=== PATIENT | male | born 1965 | race Caucasian/White ===

== ENCOUNTER 2018-05-15 16:17 | Emergency (ER) | payer BC, OTHER ==
[2018-05-15 16:30] VITALS: BP 114/77
--- NOTE | 2018-05-15 16:31 | UC ---
Skin Complaint HPI - HPI Summary HPI Summary: 53 yo male presents with rash to b/l arms. He tells me that 2 days ago he was out in the [place] putting up and taking down tree stands. The next day he developed a rash to his b/l arms. Worse today. Itchy and red. Has not applied anything OTC or taken anything po. Denies fever, chills, SOB, chest pain, or difficulty breathing. - History of Current Complaint Chief Complaint: UCRash Stated Complaint: RASH Hx Obtained From: Patient Onset/Duration: Gradual Onset Skin Exposure Onset/Duration: Days Ago Current Severity: None Pain Intensity: 0 - Allergy/Home Medications Allergies/Adverse Reactions: Allergies Allergy/AdvReac Type Severity Reaction Status Date / Time penicillin G Allergy Rash Verified 05/15/18 16:31 Sulfa (Sulfonamide Allergy Rash Verified 05/15/18 16:31 Antibiotics) Review of Systems Constitutional: Negative Skin: Rash Respiratory: Negative Cardiovascular: Negative Gastrointestinal: Negative Neurovascular: Negative Neurological: Negative Psychological: Negative All Other Systems Reviewed And Are Negative: Yes PMH/Surg Hx/FS Hx/Imm Hx - Additional Past Medical History Additional PMH: None Previously Healthy: Yes - Surgical History Surgical History: None Surgery Procedure, Year, and Place: [facility] - Family History Known Family History: Positive: None - Social History Occupation: Employed Full-time Lives: With Family Alcohol Use: Occasionally Alcohol Amount: 6 PACK/MONTH Substance Use Type: None Smoking Status (MU): Never Smoked Tobacco Physical Exam - Summary Physical Exam Summary: GENERAL: NAD. WDWN. No pain distress. SKIN: Hive-like lesions 2-3mm in clusters on b/l arms with scant linear blisters. No open wounds. No streaking, bleeding, or drainage. NECK: Supple. Nontender. No lymphadenopathy. CHEST: No accessory muscle use. Breathing comfortably and in no distress. CV: Pulses intact NEURO: Alert. CN II-XII grossly intact. PSYCH: Age appropriate behavior. Triage Information Reviewed: Yes Vital Signs: Initial Vital Signs Temp 97.3 F 05/15/18 16:27 Pulse 73 05/15/18 16:27 Resp 18 05/15/18 16:27 BP 114/77 05/15/18 16:27 Pulse Ox 97 05/15/18 16:27 Vital Signs Reviewed: Yes Course/Dx - Course Course Of Treatment: Suspect contact dermatitis or poision aixa vs sumac. Rx for po and topical steroids. Advised to apply cool compresses to the areas and take benadryl daily. - Diagnoses Provider Diagnoses: Contact dermatitis b/l arms Discharge - Sign-Out/Discharge Documenting (check all that apply): Patient Departure - Discharge Plan Condition: Stable Disposition: HOME Prescriptions: predniSONE TAB* [Deltasone 20 MG TAB*] 40 mg PO DAILY #15 tab Triamcinolone 0.1% CREAM (NF) [Kenalog 0.1% Cream (NF)] 1 applic TOPICAL BID #1 tube Patient Education Materials: Poison Aixa (ED) Referrals: Sherman Venegas MD [Primary Care Provider] - Additional Instructions: If you develop a fever, shortness of breath, chest pain, new or worsening symptoms - please call your PCP or go to the ED. 1) Please take a benadryl daily to help reduce itching and redness - Billing Disposition and Condition Condition: STABLE Disposition: Home
== END 2018-05-15 16:40 | disposition home or self-care (01) ==
LOC: UCEAST 16:17
DX: L25.9 Unspecified contact dermatitis, unspecified cause (principal); Z88.0 Allergy status to penicillin; Z88.2 Allergy status to sulfonamides
CPT/HCPCS: 99202; G0463

== ENCOUNTER 2018-11-23 08:21 | Emergency (ER) | payer OTHER ==
[2018-11-23] MEDS ORDERED: Aspirin 81 mg CHEW TAB* 81 MG TAB.CHEW PO ONE (08:36)
--- NOTE | 2018-11-23 08:51 | ED ---
HPI Chest Pain - HPI Summary HPI Summary: Patient is a 53 y/o M presenting to ED with complaints of midsternal chest pain for the past few days with worse, sharper pain since this morning. Per triage, "he is also having upper back pain with this". He endorses SOB recently. Chest pain is constant and aggravated with coughing. He endorses JONES, no dizziness, no abdominal pain, no fever. No calf pain, no recent long trips, no Hx of cancer reported. Patient has nausea and decreased appetite with no vomiting. Ibuprofen taken yesterday with no relief. No cough medicine taken. Hx of HLD, pleurisy, present Sx feel similar to previous pleurisy episodes. Patient states that he did have a chest cold a few weeks ago. He has not seen PCP, did not take antibiotics for cold. PSHx of Achilles repair by Dr. Crowley. Home medications, FMHx of cardiac disease in grandfather. He states that it has been more than a couple of years since last stress test. PCP is Dr. Venegas. He denies exertional chest pain. Patient states he does not take any medications. 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 In room, pain is rated 4-5/10. Home medications, allergies, and nurse's notes reviewed. Pulse 77, o2 95, BP 139/62, resp rate 16. Provider in room at 0844. Allergies Allergy/AdvReac Type Severity Reaction Status Date / Time penicillin G Allergy Rash Verified 11/23/18 08:28 Sulfa (Sulfonamide Allergy Rash Verified 11/23/18 08:28 Antibiotics) - History of Current Complaint Chief Complaint: EDChestPainROMI Hx Obtained From: Patient Onset/Duration: Started Days Ago, Still Present, Worse Since - this morning Timing: Constant, Lasting Days Initial Severity: Moderate Current Severity: Moderate Pain Intensity: 5 Pain Scale Used: 0-10 Numeric - 4-5/10 Chest Pain Location: Mid Sternal Chest Pain Radiates To:: Back Character: Sharp/Stabbing Aggravating Factor(s): Other: - cough Alleviating Factor(s): Nothing Associated Signs and Symptoms: Positive: Chest Pain, Headaches, Shortness of Breath, Nausea, Back Pain - upper, Other: - decreased appetite. Negative: Dizziness, Fever, Abdominal Pain, Calf Pain/Swelling, Vomiting Related History: Similar Episode/Dx as: - pleurisy - Allergy/Home Medications Allergies/Adverse Reactions: Allergies Allergy/AdvReac Type Severity Reaction Status Date / Time penicillin G Allergy Rash Verified 11/23/18 08:28 Sulfa (Sulfonamide Allergy Rash Verified 11/23/18 08:28 Antibiotics) PMH/Surg Hx/FS Hx/Imm Hx Previously Healthy: No Endocrine/Hematology History: Denies: Hx Diabetes, Hx Thyroid Disease Cardiovascular History: Reports: Hx Hypercholesterolemia Denies: Hx Hypertension Respiratory History: Denies: Hx Asthma, Hx Chronic Obstructive Pulmonary Disease (COPD) GI History: Denies: Hx Ulcer Sensory History: Reports: Hx Contacts or Glasses - BOTH Denies: Hx Hearing Aid Opthamlomology History: Reports: Hx Contacts or Glasses - BOTH - Surgical History Surgery Procedure, Year, and Place: [facility]. Achilles repair by Dr. Keo Mcclure Anesthesia Reactions: No Infectious Disease History: No Infectious Disease History: Denies: Hx Hepatitis, Traveled Outside the [place] in Last 30 Days - Family History Known Family History: Positive: Cardiac Disease - Social History Alcohol Use: Occasionally Alcohol Amount: 6 PACK/MONTH Substance Use Type: Reports: None Smoking Status (MU): Never Smoked Tobacco Review of Systems Negative: Fever Positive: Chest Pain Positive: Shortness Of Breath Gastrointestinal: Other - POSITIVE - DECREASED APPETITE Positive: Nausea. Negative: Vomiting Musculoskeletal: Other - POSITIVE - UPPER BACK PAIN; NEGATIVE - CALF PAIN Skin: Negative Neurological: Other - NEGATIVE - DIZZINESS Positive: Headache All Other Systems Reviewed And Are Negative: Yes Physical Exam - Summary Physical Exam Summary: Appearance: Ill-appearing, moderate pain distress, well-nourished Skin: Warm, color reflects adequate perfusion, dry Head: Normal Head/Face inspection, atraumatic Eyes: Conjunctiva clear ENT: Normal inspection Neck: Supple, no nodes, no JVD Respiratory: Lungs clear, normal breath sounds, no respiratory distress Cardio: RRR, No murmur, pulses normal, brisk capillary refill Abdomen: Soft, nontender Bowel sounds: Present Musculoskeletal: Strength Intact/ROM intact, no calf tenderness, no edema. Psychological: Normal Neuro: Alert, muscle tone normal, no focal deficit Triage Information Reviewed: Yes Vital Signs On Initial Exam: Initial Vitals Temp Pulse Resp BP Pulse Ox 97.6 F 78 18 147/93 97 11/23/18 08:23 11/23/18 08:23 11/23/18 08:23 11/23/18 08:23 11/23/18 08:23 Vital Signs Reviewed: Yes Diagnostics - Vital Signs Vital Signs Temp Pulse Resp BP Pulse Ox 11/23/18 08:23 97.6 F 78 18 147/93 97 - Laboratory Result Diagrams: 11/23/18 08:52 11/23/18 08:52 Lab Statement: Any lab studies that have been ordered have been reviewed, and results considered in the medical decision making process. - Radiology chest x-ray Radiology Interpretation Completed By: Radiologist Summary of Radiographic Findings: CXR IMPRESSION: FINDINGS SUGGESTIVE OF OLD GRANULOMATOUS DISEASE, NO EVIDENCE FOR ACUTE. FINDING. THIS REPORT WAS REVIEWED BY ED PHYSICIAN. - EKG 0830 Cardiac Rate: NL - rate of 72 BPM EKG Rhythm: Sinus Rhythm ST Segment: Non-Specific Ectopy: None EKG Comparison: Other - no prior to compare Summary of EKG Findings: EKG showed sinus rhythm with rate of 72 BPM, nml AV/IV CT, nml QTc, and nml axis. No acute changes. Ectopy none, non specific ST. Re-Evaluation - Re-Evaluation First Eval Re-Evaluation Time: 13:05 Change: Improved Comment: Patient is pain free and comfortable at this time. Results of labs and tests were discussed with patient, he will be discharged to home with follow up with PCP. Patient is agreeable with this. Chest Pain Course/Dx - Course Course Of Treatment: Patient is a 53 y/o M presenting to ED with complaints of midsternal chest pain for the past few days with worse, sharper pain since this morning. Per triage, "he is also having upper back pain with this". He endorses SOB recently. Chest pain is constant and aggravated with coughing. He endorses JONES, no dizziness, no abdominal pain, no fever. No calf pain, no recent long trips, no Hx of cancer reported. Patient has nausea and decreased appetite with no vomiting. Ibuprofen taken yesterday with no relief. No cough medicine taken. Hx of HLD, pleurisy, present Sx feel similar to previous pleurisy episodes. Patient states that he did have a chest cold a few weeks ago. He has not seen PCP, did not take antibiotics for the cold. PSHx of Achilles repair by Dr. Crowley. Home medications, FMHx of cardiac disease in grandfather. He states that it has been more than a couple of years since last stress test. PCP is Dr. Venegas. He denies exertional chest pain. Patient states he does not take any medications. 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 In room, pain is rated 4-5/10. Home medications, allergies, and nurse's notes reviewed. Pulse 77, o2 95, BP 139/62, resp rate 16. On physical exam, moderate pain distress and ill-appearance is noted. . EKG showed sinus rhythm with rate of 72 BPM, nml AV/IV CT, nml QTc, and nml axis. No acute changes. Ectopy none, non specific ST. CXR IMPRESSION: FINDINGS SUGGESTIVE OF OLD GRANULOMATOUS DISEASE , NO EVIDENCE FOR ACUTE. FINDING. Labs showed RBC 5.64, MPV 6.5, absolute monos 0.9, D-dimer < 200, BUN/creatinine ratio 24.4, glucose 113, lactic acid 1.8, CK-MB 1.9, BNP 11, TSH 0.84. T4 8.06. First trop and second trop were both negative. During ED course, patient received 324 ASA mg PO. With recent URI and chest pain with cough, suspect pleurisy which patient has had before, doubt cardiac disease. 1305 - Patient is pain free and comfortable. Results of labs and tests were discussed with patient, he will be discharged to home with follow up with PCP. Patient is agreeable with this. - Chest Pain Differential Diagnosis/HQI/PQRI: Acute [place], ACS, Chest Wall, GI Disease, Lower Respiratory Infection, Pulmonary Embolism, Other: - pleurisy - Diagnoses Provider Diagnoses: Chest pain, Pleurisy Discharge - Sign-Out/Discharge Documenting (check all that apply): Patient Departure - discharge Patient Received Moderate/Deep Sedation with Procedure: No - NO PROCEDURES DONE - Discharge Plan Condition: Stable Disposition: HOME Patient Education Materials: Chest Pain (ED), Pleurisy (ED) Referrals: Sherman Venegas MD [Primary Care Provider] - (Keep your appointment for next week. ) Additional Instructions: We did not find a serious cause for your chest pain today. It is likely pleurisy after your recent upper respiratory infection. You may treat this with anti-inflammatory medication such as ibuprofen. Keep your appointment with Dr. Bosler next week. Return to the ER if you have any new or worsening symptoms. - Billing Disposition and Condition Condition: STABLE Disposition: Home - Attestation Statements Document Initiated by Lawson: Yes Documenting Scribe: NIKI OCHOA Provider For Whom Lawson is Documenting (Include Credential): TERRA AGUILAR MD Scribe Attestation: NIKI Ayala , scribed for TERRA AGUILAR MD on 11/29/18 at 0250. Scribe Documentation Reviewed: Yes Provider Attestation: The documentation as recorded by the NIKI ga accurately reflects the service I personally performed and the decisions made by me, TERRA AGUILAR MD Status of Scribe Document: Viewed
[2018-11-23 09:01] LABS: ABS Basophils 0.1 10^3/ul (0-0.2); ABS Eosinophils 0.2 10^3/ul (0-0.6); ABS Lymphocytes 2.4 10^3/ul (1.0-4.8); ABS Monocytes 0.9 10^3/ul (0-0.8); ABS Nucleated RBC 0 10^3/ul; Hematocrit 48 % (42-52); Hemoglobin 15.9 g/dl (14.0-18.0); Lymphocyte % 22.6 %; Mean Corpuscular HGB Conc 34 g/dl (31-36); Mean Corpuscular Hemoglobin 28 pg (27-31); Mean Corpuscular Volume 84 fL (80-94); Mean Platelet Volume 6.5 fL (7.4-10.4); Nucleated Red Blood Cells % 0.1; Platelet Count 381 10^3/ul (150-450); Red Blood Count 5.64 10^6/ul (4.00-5.40); Red Cell Distribution Width 14 % (10.5-15); White Blood Count 10.6 10^3/ul (3.5-10.8)
[2018-11-23 09:16] LABS: INR 0.89 (0.77-1.02)
[2018-11-23 09:21] LABS: Albumin 4.6 g/dL (3.2-5.2); Albumin/Globulin Ratio 1.7 (1-3); BUN/Creatinine Ratio 24.4 (8-20); Calcium 10.1 mg/dL (8.6-10.3); EGFR African American 107.6 (>60); Globulin 2.7 g/dL (2-4); Magnesium 1.9 mg/dL (1.9-2.7); Potassium 4.3 mmol/L (3.5-5.0); Total Bilirubin 0.6 mg/dL (0.2-1.0); Total Protein 7.3 g/dL (6.4-8.9)
[2018-11-23 09:24] LABS: CKMB ng/mL 1.9 ng/mL (0.6-6.3)
[2018-11-23 09:52] LABS: T4, Total 8.06 mcg/dL (6.09-12.23)
[2018-11-23 09:56] LABS: TSH (Thyroid Stimulating Horm) 0.84 mcIU/mL (0.34-5.60)
[2018-11-23 13:18] VITALS: BP 140/91
== END 2018-11-23 13:18 | disposition home or self-care (01) ==
LOC: ED 08:21
DX: R07.9 Chest pain, unspecified (principal); R09.1 Pleurisy; E78.5 Hyperlipidemia, unspecified; Z88.0 Allergy status to penicillin; Z88.2 Allergy status to sulfonamides
CPT/HCPCS: 36415; 71045; 80053; 82550; 82553; 83605; 83735; 83880; 84436; 84443; 84484; 85025; 85379; 85610; 85730; 93005; 99282; A9270-GY

== ENCOUNTER 2019-05-17 17:06 | Emergency (ER) | payer OTHER ==
[2019-05-17 17:21] VITALS: BP 127/90
--- NOTE | 2019-05-17 17:34 | UC ---
UC General HPI - HPI Summary HPI Summary: Pleasant 54 yo gentleman c/o feeling generally unwell over the last few months, progressively worse this week. Achy, malaise, weak, lack of appetite. Noted 25+ lb weight loss over the last 4 months No acute fever No cough. No sob (excpet + malaise). No palpitations. No n/v/d. No melena / brbrp. No urinary sx. Has not seen PCP in > 1 yr (Dr[address] Venegas). Nonsmoker. - History of Current Complaint Chief Complaint: UCGeneralIllness Stated Complaint: RECENT WEIGHT LOSS, ACHES Hx Obtained From: Patient Pain Intensity: 4 - Allergy/Home Medications Allergies/Adverse Reactions: Allergies Allergy/AdvReac Type Severity Reaction Status Date / Time penicillin G Allergy Rash Verified 11/23/18 08:28 Sulfa (Sulfonamide Allergy Rash Verified 11/23/18 08:28 Antibiotics) Home Medications: Home Medications Ibuprofen TAB* [Motrin TAB* 400 MG] 05/17/19 [History] PMH/Surg Hx/FS Hx/Imm Hx Previously Healthy: Yes - Surgical History Surgical History: None Surgery Procedure, Year, and Place: [facility]. Achilles repair by Dr. Crowley - Family History Known Family History: Positive: None, Cardiac Disease - Social History Alcohol Use: Occasionally Alcohol Amount: 6 PACK/MONTH Substance Use Type: None Smoking Status (MU): Never Smoked Tobacco Review of Systems All Other Systems Reviewed And Are Negative: Yes Constitutional: Positive: Fatigue Skin: Positive: Negative Eyes: Positive: Negative ENT: Positive: Other - see hpi Respiratory: Positive: Other - see hpi Cardiovascular: Positive: Other - see hpi Gastrointestinal: Positive: Other - see hpi Genitourinary: Positive: Other - see hpi Motor: Positive: Other - see hpi Neurovascular: Positive: Other - see hpi Musculoskeletal: Positive: Other: - see hpi Neurological: Positive: Other - see hpi Psychological: Positive: Negative Is Patient Immunocompromised?: No Physical Exam Triage Information Reviewed: Yes Appearance: Other: - Sitting up on exam table. Conversing easily, full sentances. Looks tired, but nad. Vital Signs: Initial Vital Signs Temp 97.8 F 05/17/19 17:14 Pulse 73 05/17/19 17:14 Resp 16 05/17/19 17:14 BP 127/90 05/17/19 17:14 Pulse Ox 98 05/17/19 17:14 Vital Signs Reviewed: Yes Eye Exam: Normal ENT Exam: Other Neck exam: Normal Neck: Positive: Supple, Nontender Cardiovascular Exam: Normal Abdominal Exam: Normal Musculoskeletal Exam: Normal Neurological Exam: Normal Psychological Exam: Normal Skin Exam: Normal Course/Dx - Course Course Of Treatment: Urine dip noted, reviewed with pt. sg 1.0025, 1+ ketones, 1+ blood Reviewed cxr report with pt. Reviewed coa / tx plan. Blood work ordered, encouraged close f/u early this week with pcp. Encourage go to the ED if worse or new problems. Questions as posed answered to the best of my ability. - Diagnoses Provider Diagnosis: Weight loss, unintentional, Fatigue Discharge - Sign-Out/Discharge Documenting (check all that apply): Patient Departure All imaging exams completed and their final reports reviewed: Yes - Discharge Plan Condition: Stable Disposition: HOME Patient Education Materials: Acute Nausea and Vomiting (ED), Hematuria (ED), Weakness (ED) Forms: *Work Release Referrals: Sherman Venegas MD [Primary Care Provider] - Additional Instructions: Hydrate. Follow up with Dr. Venegas, call for appointment for early this week. Please go to the Emergency Department for ANY worse or new problems. Blood work pending. - Billing Disposition and Condition Condition: STABLE Disposition: Home
[2019-05-18 14:50] LABS: Hematocrit 50 % (42-52); Hemoglobin 17.3 g/dL (14.0-18.0); Mean Corpuscular HGB Conc 34 g/dL (31-36); Mean Corpuscular Hemoglobin 29 pg (27-31); Mean Corpuscular Volume 86 fL (80-94); Mean Platelet Volume 6.8 fL (7.4-10.4); Platelet Count 369 10^3/uL (150-450); Red Blood Count 5.87 10^6 /uL (4.18-5.48); Red Cell Distribution Width 14 % (10-15); White Blood Count 11.5 10^3/uL (3.5-10.8)
[2019-05-18 15:15] LABS: TSH (Thyroid Stimulating Horm) 1.55 mcIU/mL (0.34-5.60)
[2019-05-18 15:35] LABS: Albumin 4.9 g/dL (3.2-5.2); Potassium 4.2 mmol/L (3.5-5.0); Total Bilirubin 0.9 mg/dL (0.2-1.0)
[2019-05-18 15:41] LABS: Albumin/Globulin Ratio 1.9 (1-3); BUN/Creatinine Ratio 21.2 (8-20); C Reactive Protein 1.84 mg/L (<8.01); EGFR African American 82.5 (>60); EGFR Non-African American 68.1 (>60); Globulin 2.6 g/dL (2-4); Total Protein 7.5 g/dL (6.4-8.9)
[2019-05-18 15:45] LABS: ABS Basophils 0.1 10^3/ul (0-0.2); ABS Eosinophils 0.3 10^3/ul (0-0.6); ABS Lymphocytes 3.3 10^3/ul (1.0-4.8); ABS Monocytes 1.1 10^3/ul (0-0.8); ABS Neutrophils 6.7 10^3/ul (1.5-7.7); Eosinophil % 2.8 %; Lymphocyte % 28.7 %; Nucleated Red Blood Cells % 0.2
--- NOTE | 2019-05-19 07:39 | UC ---
- Progress Note Progress Note: Lab results reviewed today: CBC with slightly high white count at 11.5 RBC, Hb and Hct on higher side. Had ketone and blood in urine but Cr is WNL. Has a 25 lb weight loss recently . RN to call patient and inform him of results that high WBC can indicate an infection and if he is not better or symptoms worsening , should go to ER . He needs to follow up with his PCP for detailed evaluation of his maricruz loss and high blood counts. Course/Dx - Diagnoses Provider Diagnoses: Weight loss, unintentional, Fatigue Discharge - Sign-Out/Discharge Documenting (check all that apply): Post-Discharge Follow Up All imaging exams completed and their final reports reviewed: Yes - Discharge Plan Condition: Stable Disposition: HOME Patient Education Materials: Acute Nausea and Vomiting (ED), Hematuria (ED), Weakness (ED) Forms: *Work Release Referrals: Sherman Venegas MD [Primary Care Provider] - Additional Instructions: Hydrate. Follow up with Dr. Venegas, call for appointment for early this week. Please go to the Emergency Department for ANY worse or new problems. Blood work pending. - Billing Disposition and Condition Condition: STABLE Disposition: Home
== END 2019-05-17 18:24 | disposition home or self-care (01) ==
LOC: UCEAST 17:06
DX: R53.83 Other fatigue (principal); R63.4 Abnormal weight loss; Z88.0 Allergy status to penicillin; Z88.2 Allergy status to sulfonamides
CPT/HCPCS: 36415; 71046; 80053; 81003; 84443; 85025; 86140; 86618; 99211; G0463